=== PATIENT | female | born 1955 | race Caucasian/White ===

== ENCOUNTER 2021-11-01 14:05 | Observation (INO) | payer BC ==
[2021-11-01] MEDS ORDERED: Sodium Chloride 0.9% 10 ML Syringe FLUSH PRN (14:14)
[2021-11-01] MEDS ORDERED: HYDROmorphone 0.5 MG/0.5 ML Syringe IV ONE ×2 (14:16→15:21)
[2021-11-01] MEDS ORDERED: Ondansetron 4 MG/2 ML SDV IV ONE (14:16)
--- NOTE | 2021-11-01 14:24 | EDM.PDOC ---
ED HPI GENERAL MEDICAL PROBLEM - General Stated Complaint: STOMACH PAIN Time Seen by Provider: 11/01/21 14:23 Source of Information: Reports: Patient History Limitations: Reports: No Limitations - History of Present Illness INITIAL COMMENTS - FREE TEXT/NARRATIVE: Patient comes emergency department today with complaints of mid abdominal pain around her epigastric. This patient has a significant history in July she had a small bowel perforation where she ended up with a right upper quadrant ileostomy. She had a takedown of this ileostomy and reanastomosis on October 03 of this year. She had return to full diet on October 14. Over the past 24 hours or so she has developed mid abdominal pain cramping some nausea without vomiting. No fever no chills. She has no bloating. She has had bowel movements and she is passing gas. She has no hematuria dysuria urinary frequency. She has had no chest pain no shortness of breath or difficulty breathing. No flank pain. Middle Abdomen Pain Score (Numeric/FACES): 5 - Related Data Allergies Allergy/AdvReac Type Severity Reaction Status Date / Time hydrocodone AdvReac Vomiting Verified 11/01/21 16:07 ibuprofen AdvReac Vomiting Verified 11/01/21 16:07 Home Meds: Home Meds Albuterol Sulfate [Albuterol Sulfate HFA] 1 puff INH Q4H PRN 08/16/21 [History] Fluticasone/Vilanterol [Breo Ellipta 200-25 MCG Inhalation Kit] 1 inh IH DAILY 08/16/21 [History] Montelukast [Singulair] 10 mg PO BEDTIME 08/16/21 [History] Acetaminophen [Tylenol] 325 mg PO Q6H 11/01/21 [History] Aspirin 81 mg PO DAILY 11/01/21 [History] Multivit-Min/Iron/Folic/Lutein [Centrum Silver Women Tablet] 1 tab PO BEDTIME 11/01/21 [History] Past Medical History HEENT History: Reports: None Cardiovascular History: Reports: None Respiratory History: Reports: Asthma Gastrointestinal History: Reports: PUD, Other (See Below) (Bowel perf with ileostomy and take out.) Other Gastrointestinal History: Diverticulitis Genitourinary History: Reports: Other (See Below) Other Genitourinary History: polycystic kidney and liver MACHINIST SET UP History: Reports: None Musculoskeletal History: Reports: None Neurological History: Reports: None Psychiatric History: Reports: None Endocrine/Metabolic History: Reports: None Insulin Pump Model and Scaffold Builder: N/A Hematologic History: Reports: None Immunologic History: Reports: None Oncologic (Cancer) History: Reports: None Dermatologic History: Reports: None - Infectious Disease History Infectious Disease History: Reports: Chicken Pox - Past Surgical History Head Surgeries/Procedures: Reports: None Female Surgical History: Reports: Tubal Ligation Musculoskeletal Surgical History: Reports: Other (See Below) Other Musculoskeletal Surgeries/Procedures:: carpal tunnel. R hand trigger thumb Social & Family History - Caffeine Use Caffeine Use: Reports: None ED ROS GENERAL - Review of Systems Review Of Systems: Comprehensive ROS is negative, except as noted in HPI. ED EXAM, GI/ABD - Physical Exam Exam: See Below Exam Limited By: Altered Mental Status General Appearance: WD/WN, No Apparent Distress Ears: Normal External Exam, Normal TMs Nose: Normal Inspection, Normal Mucosa Throat/Mouth: Normal Inspection, Normal Lips, Normal Oropharynx Head: Atraumatic, Normocephalic Neck: Normal Inspection, Supple, Non-Tender Respiratory/Chest: No Respiratory Distress, Lungs Clear, No Accessory Muscle Use, Chest Non-Tender Cardiovascular: Normal Peripheral Pulses, Regular Rate, Rhythm GI/Abdominal Exam: Normal Bowel Sounds, Soft, Guarding (mid abd. ), Other (Well healed surgical scars of the abd as well. ). No: Distended, Rigid, Rebound, Tender (Female) Exam: Deferred Rectal (Female) Exam: Deferred Back Exam: Normal Inspection Extremities: Normal Inspection, Normal Range of Motion, Normal Capillary Refill Neurological: Alert, Oriented, No Motor/Sensory Deficits Psychiatric: Normal Affect, Normal Mood Skin Exam: Warm, Dry, Intact, Normal Color Course - Vital Signs Last Recorded V/S: Last Vital Signs Temp 95.9 F L 11/03/21 02:00 Pulse 74 11/03/21 02:00 Resp 16 11/03/21 02:00 BP 133/75 11/03/21 02:00 Pulse Ox 98 11/03/21 02:00 - Orders/Labs/Meds Orders: Medication Orders Acetaminophen (Acetaminophen 325 Mg Tab) 650 mg PO Q4H PRN PRN Reason: Pain/Fever Last Admin: 11/02/21 08:32 Dose: 650 mg Documented by: BONNIE Acetaminophen (Acetaminophen 325 Mg Tab) 325 mg PO Q6H [facility] Last Admin: 11/02/21 16:53 Dose: 325 mg Documented by: Admin: 11/02/21 11:37 Dose: 325 mg Documented by: BONNIE Aspirin (Aspirin 81 Mg Tab.Chew) 81 mg PO DAILY [facility] Last Admin: 11/02/21 08:01 Dose: 81 mg Documented by: BONNIE Flumazenil (Flumazenil 0.1 Mg/Ml 5 Ml Mdv) 0.2 mg IVPUSH ASDIRECTED PRN PRN Reason: Respiratory Depression Hydromorphone HCl (Hydromorphone 0.5 Mg/0.5 Ml Syringe) 0.5 mg IVPUSH Q2H PRN PRN Reason: Pain (moderate 4-6) Last Admin: 11/02/21 02:34 Dose: 0.5 mg Documented by: Admin: 11/01/21 22:28 Dose: 0.5 mg Documented by: ZOHRA Lorazepam (Lorazepam 2 Mg/Ml Sdv) 0.5 mg IVPUSH Q4H PRN PRN Reason: Anxiety Last Admin: 11/02/21 16:54 Dose: 0.5 mg Documented by: BONNIE Losartan Potassium (Losartan 25 Mg Tab) 25 mg PO DAILY [facility] Last Admin: 11/02/21 11:36 Dose: 25 mg Documented by: BONNIE Metoclopramide HCl (Metoclopramide 10 Mg/2 Ml Sdv) 5 mg IVPUSH Q4H PRN PRN Reason: Nausea Mometasone Furoate/Formoterol Fumar (Formoterol/Mometasone 200-5 Mcg 13 Gm Inhaler) 0 puff INH BID [facility] Last Admin: 11/02/21 08:01 Dose: 2 inhalation Documented by: Admin: 11/01/21 20:57 Dose: 2 inhalation Documented by: ZOHRA Ondansetron HCl (Ondansetron 4 Mg/2 Ml Sdv) 4 mg IV Q6H PRN PRN Reason: Nausea/Vomiting Last Admin: 11/02/21 08:01 Dose: 4 mg Documented by: Admin: 11/01/21 22:32 Dose: 4 mg Documented by: ZOHRA Sodium Chloride (Sodium Chloride 0.9% 10 Ml Syringe) 10 ml FLUSH ASDIRECTED PRN PRN Reason: Keep Vein Open Labs: Laboratory Tests 11/01/21 11/01/21 11/01/21 Range/Units 14:11 14:11 14:11 WBC 5.4 (4.0-10.0) x10^3/uL RBC 3.96 L (4.00-5.50) x10^6/uL Hgb 12.4 (12.0-16.0) g/dL Hct 36.0 (33.0-47.0) % MCV 90.9 (78.0-93.0) fL MCH 31.3 (26.0-32.0) pg MCHC 34.4 (32.0-36.0) g/dL RDW Coeff of Anca 13.1 (10.0-15.0) % Plt Count 258 (130-400) x10^3/uL Immature Gran % (Auto) 0.00 (0.00-0.43) % Neut % (Auto) 69.0 (50.0-80.0) % Lymph % (Auto) 20.1 L (25.0-50.0) % [place] % (Auto) 8.7 (2.0-11.0) % Eos % (Auto) 1.5 (0.0-4.0) % Baso % (Auto) 0.7 (0.2-1.2) % Neut # (Auto) 3.7 (1.8-7.7) x10^3/uL Lymph # (Auto) 1.1 (1.0-4.8) x10^3/uL [place] # (Auto) 0.5 (0.0-0.8) x10^3/uL Eos # (Auto) 0.1 (0.0-0.5) x10^3/uL Baso # (Auto) 0.0 (0.0-0.2) x10^3/uL Immature Gran # (Auto) 0.00 (0.00-0.07) x10^3/uL Sodium 140 (136-145) mmol/L Potassium 3.6 (3.5-5.1) mmol/L Chloride 104 (98-107) mmol/L Carbon Dioxide 28 (21-32) mmol/L Anion Gap 11.6 (5-15) mmol/L BUN 13 (7-18) mg/dL Creatinine 0.8 (0.55-1.02) mg/dL Est Cr Clr Drug Dosing TNP Estimated GFR (MDRD) > 60 Glucose 101 H (70-99) mg/dL Lactic Acid 1.1 (0.4-2.0) mmol/L Calcium 9.4 (8.5-10.1) mg/dL Corrected Calcium 9.4 (8.5-10.1) mg/dL Total Bilirubin 0.3 (0.2-1.0) mg/dL AST 21 (15-37) U/L ALT 42 (14-59) U/L Alkaline Phosphatase 117 H (46-116) U/L C-Reactive Protein < 0.2 (<=0.9) mg/dL Total Protein 7.2 (6.4-8.2) g/dL Albumin 4.0 (3.4-5.0) g/dL Globulin 3.2 Albumin/Globulin Ratio 1.25 Lipase 134 (73-393) U/L Procalcitonin (0.1-0.50) ng/mL Urine Color (YELLOW) Urine Appearance (CLEAR) Urine pH (5.0-8.0) Ur Specific [place] Urine Protein (NEGATIVE) mg/dL Urine Glucose (UA) (NEGATIVE) mg/dL Urine Ketones (NEGATIVE) mg/dL Urine Occult Blood (NEGATIVE) Urine Nitrite (NEGATIVE) Urine Bilirubin (NEGATIVE) Urine Urobilinogen (0.2) EU/dL Ur Leukocyte Esterase (NEGATIVE) Urine RBC (NOT SEEN) /HPF Urine WBC (NOT SEEN) /HPF Ur Squamous Epith Cells (NOT SEEN) /HPF Urine Bacteria (NOT SEEN) /HPF Urine Mucus (NOT SEEN) /LPF SARS CoV-2 RNA Rapid JARRED (NEGATIVE) 11/01/21 11/01/21 11/01/21 Range/Units 14:11 14:14 16:40 WBC (4.0-10.0) x10^3/uL RBC (4.00-5.50) x10^6/uL Hgb (12.0-16.0) g/dL Hct (33.0-47.0) % MCV (78.0-93.0) fL MCH (26.0-32.0) pg MCHC (32.0-36.0) g/dL RDW Coeff of Anca (10.0-15.0) % Plt Count (130-400) x10^3/uL Immature Gran % (Auto) (0.00-0.43) % Neut % (Auto) (50.0-80.0) % Lymph % (Auto) (25.0-50.0) % [place] % (Auto) (2.0-11.0) % Eos % (Auto) (0.0-4.0) % Baso % (Auto) (0.2-1.2) % Neut # (Auto) (1.8-7.7) x10^3/uL Lymph # (Auto) (1.0-4.8) x10^3/uL [place] # (Auto) (0.0-0.8) x10^3/uL Eos # (Auto) (0.0-0.5) x10^3/uL Baso # (Auto) (0.0-0.2) x10^3/uL Immature Gran # (Auto) (0.00-0.07) x10^3/uL Sodium (136-145) mmol/L Potassium (3.5-5.1) mmol/L Chloride (98-107) mmol/L Carbon Dioxide (21-32) mmol/L Anion Gap (5-15) mmol/L BUN (7-18) mg/dL Creatinine (0.55-1.02) mg/dL Est Cr Clr Drug Dosing Estimated GFR (MDRD) Glucose (70-99) mg/dL Lactic Acid (0.4-2.0) mmol/L Calcium (8.5-10.1) mg/dL Corrected Calcium (8.5-10.1) mg/dL Total Bilirubin (0.2-1.0) mg/dL AST (15-37) U/L ALT (14-59) U/L Alkaline Phosphatase (46-116) U/L C-Reactive Protein (<=0.9) mg/dL Total Protein (6.4-8.2) g/dL Albumin (3.4-5.0) g/dL Globulin Albumin/Globulin Ratio Lipase (73-393) U/L Procalcitonin < 0.05 L (0.1-0.50) ng/mL Urine Color Yellow (YELLOW) Urine Appearance Clear (CLEAR) Urine pH 7.0 (5.0-8.0) Ur Specific [place] 1.010 Urine Protein Negative (NEGATIVE) mg/dL Urine Glucose (UA) Negative (NEGATIVE) mg/dL Urine Ketones Negative (NEGATIVE) mg/dL Urine Occult Blood Negative (NEGATIVE) Urine Nitrite Negative (NEGATIVE) Urine Bilirubin Negative (NEGATIVE) Urine Urobilinogen 0.2 (0.2) EU/dL Ur Leukocyte Esterase Trace H (NEGATIVE) Urine RBC 0-5 (NOT SEEN) /HPF Urine WBC 0-5 (NOT SEEN) /HPF Ur Squamous Epith Cells Occasional H (NOT SEEN) /HPF Urine Bacteria Rare (NOT SEEN) /HPF Urine Mucus Not seen (NOT SEEN) /LPF SARS CoV-2 RNA Rapid JARRED Negative (NEGATIVE) Meds: Medications Generic Name Dose Route Start Last Admin Trade Name Freq PRN Reason Stop Dose Admin Acetaminophen 650 mg 11/02/21 08:14 11/02/21 08:32 Acetaminophen 325 Mg Tab PO 650 mg Q4H PRN Administration Pain/Fever Acetaminophen 325 mg 11/02/21 11:00 11/02/21 16:53 Acetaminophen 325 Mg Tab PO 325 mg Q6H HELLEN Administration Aspirin 81 mg 11/02/21 08:00 11/02/21 08:01 Aspirin 81 Mg Tab.Chew PO 81 mg DAILY HELLEN Administration Flumazenil 0.2 mg 11/02/21 10:20 Flumazenil 0.1 Mg/Ml 5 Ml Mdv IVPUSH ASDIRECTED PRN Respiratory Depression Hydromorphone HCl 0.5 mg 11/01/21 18:17 11/02/21 02:34 Hydromorphone 0.5 Mg/0.5 Ml Syringe IVPUSH 0.5 mg Q2H PRN Administration Pain (moderate 4-6) Lorazepam 0.5 mg 11/02/21 10:20 11/02/21 16:54 Lorazepam 2 Mg/Ml Sdv IVPUSH 0.5 mg Q4H PRN Administration Anxiety Losartan Potassium 25 mg 11/02/21 10:45 11/02/21 11:36 Losartan 25 Mg Tab PO 25 mg DAILY HELLEN Administration Metoclopramide HCl 5 mg 11/02/21 10:20 Metoclopramide 10 Mg/2 Ml Sdv IVPUSH Q4H PRN Nausea Mometasone Furoate/Formoterol Fumar 0 puff 11/01/21 20:30 11/02/21 08:01 Formoterol/Mometasone 200-5 Mcg 13 Gm Inhaler INH 2 inhalation BID HELLEN Administration Ondansetron HCl 4 mg 11/01/21 18:17 11/02/21 08:01 Ondansetron 4 Mg/2 Ml Sdv IV 4 mg Q6H PRN Administration Nausea/Vomiting Sodium Chloride 10 ml 11/01/21 14:14 Sodium Chloride 0.9% 10 Ml Syringe FLUSH ASDIRECTED PRN Keep Vein Open Discontinued Medications Generic Name Dose Route Start Last Admin Trade Name Freq PRN Reason Stop Dose Admin Hydromorphone HCl 0.5 mg 11/01/21 14:16 11/01/21 14:28 Hydromorphone 0.5 Mg/0.5 Ml Syringe IV 11/01/21 14:17 0.5 mg ONETIME ONE Administration Hydromorphone HCl 0.5 mg 11/01/21 15:21 11/01/21 15:25 Hydromorphone 0.5 Mg/0.5 Ml Syringe IV 11/01/21 15:22 0.5 mg ONETIME ONE Administration Lactated Ringer's 1,000 mls @ 150 mls/hr 11/01/21 14:15 11/01/21 21:10 Ringers, Lactated IV Infused ASDIRECTED HELLEN Infusion Lactated Ringer's 1,000 mls @ 125 mls/hr 11/01/21 18:30 Ringers, Lactated IV ASDIRECTED HELLEN Magnesium Sulfate 2 gm/ Premix 50 mls @ 25 mls/hr 11/02/21 10:19 11/02/21 11:13 IV 11/02/21 12:18 25 mls/hr ONETIME ONE Administration Ibuprofen 600 mg 11/02/21 18:02 11/02/21 18:54 Ibuprofen 200 Mg Tab PO 11/02/21 18:03 600 mg ONETIME ONE Administration Iopamidol 100 ml 11/01/21 15:19 11/01/21 15:20 Iopamidol 612 Mg/Ml 100 Ml Bottle IVPUSH 11/01/21 15:20 74 ml ONETIME ONE Administration Ondansetron HCl 4 mg 11/01/21 14:16 11/01/21 14:29 Ondansetron 4 Mg/2 Ml Sdv IV 11/01/21 14:17 4 mg ONETIME ONE Administration - Re-Assessments/Exams Free Text/Narrative Re-Assessment/Exam: IV was established labs are drawn. LR 500 mill bolus 125 an hour. Zofran for nausea Dilaudid for pain. Laboratory evaluation Rather unremarkable with a normal lactic acid normal white blood cell count hemoglobin. Trace of leuks in her urine. Covid is negative. CT abdomen pelvis per radiology shows recent surgical changes with a mild ileus. Patient continues to be quite uncomfortable and received multiple doses of Dilaudid in the emergency department for comfort. With the presentation of this ileus and recent surgeries I did call and speak with the surgeon smoke control supervisor at [facility] where she had her surgery in the past. HPI ER COURSE findings and concerns and he was comfortable with my plan of admission clear liquid pain meds and hydration. Discussed the findings and plan of care with the patient. She initially was somewhat hesitant to be placed in the hospital primarily because she has spent so much time in the hospital in the past couple of months. Although I think it is paramount at this time for appropriate management of an ileus. She was comfortable with this plan and her questions were answered. Departure - Departure Time of Disposition: 16:00 Disposition: Refer to Observation Clinical Impression: Ileus - Discharge Information - Problem List Review Problem List Initiated/Reviewed/Updated: Yes - Assessment/Plan Admission H&P: Please use this note as an admission H&P Assessment:: Assessment/plan. 1. Mild ileus. Status post reanastomosis 10/03/21. Clear liquid diet LR 125mls/hr Dilaudid for pain Zofran Benadryl for nausea Chronic Diagnosis GERD continue home therapy Asthma continue home therapy. Polycystic kidney monitor Sepsis: No signs of sepsis at this time. VTE: Low risk TEDs Code Status: Full Plan will be to admit the patient under observation as above. I do not anticipate any more than 48 hours of admission for this patient. If she does not clinically improve or she worsens by any means may have to change her to inpatient status and complete further evaluation although I think this is unlikely. The patient will be seen by her primary care provider Dr. French Maza in the morning. The patient is comfortable with this plan and her questions answered.
[2021-11-01] MEDS: Lactated Ringers 1,000 ML IV SCH (14:29)
[2021-11-01 14:36] LABS: CHLORIDE,CL 104 mmol/L (98-107); SODIUM,NA 140 mmol/L (136-145)
[2021-11-01 14:37] LABS: ANION GAP 11.6 mmol/L (5-15)
[2021-11-01] MEDS ORDERED: Iopamidol 612 MG/ML 100 ML Bottle IVPUSH ONE (15:19)
--- NOTE | 2021-11-01 15:33 | CT ---
[id number] CT/CT Abdomen Pelvis W IV EXAM: CT Abdomen Pelvis W IV CLINICAL DATA: ABDOMINAL PAIN RECENT SURGERY COMPARISON: No previous similar exam is available. FINDINGS: Surgical changes are seen There is no free fluid or free air There is no bowel obstruction. There is evidence of polycystic disease involving the kidneys and liver There appears to be a mild ileus. The gallbladder is not distended The mesenteric vessels are opacified normally There may be portal venous hypertension The pelvis shows no mass or adenopathy IMPRESSION: RECENT SURGICAL CHANGES MILD ILEUS Mook Lorenzo MD 11/01/21 [id number] Thank you for allowing us to participate in the care of your patient.
[2021-11-01] MEDS ORDERED: Lactated Ringers 1,000 ML IV SCH (18:30)
[2021-11-01] MEDS: Formoterol/Mometasone 200-5 MCG 13 GM Inhaler INH SCH (20:57)
[2021-11-01] MEDS: HYDROmorphone 0.5 MG/0.5 ML Syringe IVPUSH PRN (22:28)
[2021-11-01] MEDS: Ondansetron 4 MG/2 ML SDV IV PRN (22:32)
[2021-11-02] MEDS: HYDROmorphone 0.5 MG/0.5 ML Syringe IVPUSH PRN (02:34)
[2021-11-02] MEDS: Lactated Ringers 1,000 ML IV SCH (02:34)
[2021-11-02] MEDS: Formoterol/Mometasone 200-5 MCG 13 GM Inhaler INH SCH (08:01)
[2021-11-02] MEDS: Ondansetron 4 MG/2 ML SDV IV PRN (08:01)
[2021-11-02] MEDS: Aspirin 81 MG Tab.Chew PO SCH (08:01)
[2021-11-02] MEDS: Acetaminophen 325 MG Tab PO PRN (08:32)
[2021-11-02 08:40] LABS: CHLORIDE,CL 103 mmol/L (98-107); SODIUM,NA 141 mmol/L (136-145)
[2021-11-02 08:46] LABS: ANION GAP 12.7 mmol/L (5-15)
[2021-11-02] MEDS ORDERED: Magnesium Sulfate/Water 2 GM in Premix Bag 1 BAG IV ONE (10:19)
[2021-11-02] MEDS ORDERED: Flumazenil 0.1 MG/ML 5 ML MDV IVPUSH PRN (10:20)
[2021-11-02] MEDS ORDERED: LORazepam 2 MG/ML SDV IVPUSH PRN (10:20)
[2021-11-02] MEDS ORDERED: Metoclopramide 10 MG/2 ML SDV IVPUSH PRN (10:20)
--- NOTE | 2021-11-02 11:33 | PN ---
Progress Note for RICKY ANDINO Date: 11/02/2021 Room #: VM.205 SUBJECTIVE: This is a 65-year-old admitted to observation yesterday after coming in with significant abdominal pain. The patient had diverticulitis and surgery earlier this year and then had a colostomy reversal. She did say she has been anxious, having trouble sleeping at night, was in the ER on the and her blood pressure was 169/77. She got a dose of clonidine and that did help. She did get a dose of IV Dilaudid and her abdominal pain is much better, just tender to the touch, but it made her nauseous. This morning, she was having more of a headache, more in the neck. She did get some Tylenol, it helped a little. She is requesting something for anxiety. She had gotten some IV Zofran also this morning. She has been on IV fluids. She did well with liquids, but did sort of get not feeling so well after having the broth. The patient does have a history of hypertension and polycystic kidney disease. She is normally on losartan in the past, 25 mg daily. Of note, her ileostomy takedown was on 10/03/2021 and she went home on 10/05/2021. She is passing gas, but has not had a bowel movement since admission. She has been up. She is walking around in the halls. Her initial diverticulitis admission was 08/19/2021, discharged on the . OBJECTIVE: Vital Signs: Today, blood pressure here is excellent this morning 133/67. She did have a peak of 157/89 during the night. Her temperature is 97.1, pulse 84, respiratory rate 19, and O2 of 95% on room air. General: She is in no acute distress. Heart: Regular rate and rhythm. S1, S2 without murmur. Lungs: Her lung sounds are clear to auscultation bilaterally without crackles or wheezes. Abdomen: Positive bowel sounds. It is soft and nondistended. There is mild tenderness over her well-healed incisions and in the mid abdomen, but no rebound or guarding. Mental Status: She is alert and orientated x3. She is not overly shaky or anxious, but admits to feeling anxious at times affecting her sleep. Extremities: She does have some tenderness on her upper trapezius muscles. Her neck range of motion is good. LABORATORY DATA: White count normal 5.3, hemoglobin 12.1, platelets 226. Sodium 141, potassium 3.7, chloride 103, bicarb 29, BUN 8, creatinine 0.7, glucose 107, calcium 9.1. UA, just trace leukocytes, nothing on culture. ASSESSMENT: 1. Ileus. She had a CT yesterday confirming this. Her symptoms are already improving. She has not vomited. She is not requiring an NG tube. 2. Headache, probably some muscle tension. We will give her some IV magnesium and have p.r.n. Ativan available. She also has Tylenol available. 3. Essential hypertension. I am going to restart her losartan. She already has a followup in the clinic to further discuss this. 4. Anxiety. Discussed using medications like Ativan in the short term and she is agreeable to try that. 5. Polycystic kidney disease. She has had CTs in the past of the head to evaluate for aneurysm. 6. Recent ileostomy takedown. The patient seems to be doing well. We will continue her on clear liquids and advance diet as tolerated. We will try to limit the Dilaudid for pain. If absolutely necessary could use a dose of IV toradol but patient prefers to stick with tylenol PLAN: The patient will continue on acute cares. We will continue with monitoring of her electrolytes for the ileus. We will stop the IV fluids. I will give her some IV magnesium. Restart her losartan. Repeat lab work tomorrow and also add IV p.r.n. Reglan if needed for nausea. Anticipate the patient will be stable for discharge to home tomorrow. MKA: 11/02/2021 10:40:56 MODL: 11/02/2021 11:26:39 /[id number] RANGEL
[2021-11-02] MEDS: Losartan 25 MG Tab PO SCH (11:36)
[2021-11-02] MEDS: Acetaminophen 325 MG Tab PO SCH ×2 (11:37→16:53)
[2021-11-02] MEDS ORDERED: Ibuprofen 200 MG Tab PO ONE (18:02)
[2021-11-03] MEDS: Acetaminophen 325 MG Tab PO SCH (07:47)
[2021-11-03] MEDS: Formoterol/Mometasone 200-5 MCG 13 GM Inhaler INH SCH ×2 (07:48→09:08)
[2021-11-03 08:37] LABS: CHLORIDE,CL 106 mmol/L (98-107); SODIUM,NA 143 mmol/L (136-145)
[2021-11-03] MEDS: Losartan 25 MG Tab PO SCH (09:05)
[2021-11-03] MEDS: Acetaminophen 325 MG Tab PO PRN (09:06)
[2021-11-03] MEDS: Aspirin 81 MG Tab.Chew PO SCH (09:06)
[2021-11-03] MEDS ORDERED: Take Home: LORazepam 0.5 MG Tab, 2 Tab Pack PO ONE (10:38)
[2021-11-03] MEDS ORDERED: LORazepam 0.5 MG Tab PO PRN (10:46)
--- NOTE | 2021-11-04 05:48 | DISCH ---
PRIMARY DISCHARGE DIAGNOSIS: Ileus. SECONDARY DISCHARGE DIAGNOSES: 1. Headache due to some muscle tension, improved. 2. Adjustment disorder with some anxiety. She did get a dose of Ativan that helps. 3. Essential hypertension, controlled on losartan. 4. Polycystic kidney disease. 5. Diverticulitis earlier this year with emergent colostomy and then recent ileostomy takedown earlier this month on 10/03. REASON FOR ADMISSION: On the date of admission, this 65-year-old female who had previous abdominal surgeries this fall for diverticulitis, had been recovering at home from her ileostomy reversal when she ate some oatmeal in the morning. She had actually had a bowel movement, then she tried to have some soup, but she had increasing abdominal pain to the point where she presented to the ER. She did not have any vomiting but did have nausea. No fever, no chills. She was given IV fluids, IV Ativan and IV Dilaudid and her symptoms did improve. She actually felt that her nausea on her 1st full hospital morning was due to the IV Dilaudid and after that, she took Tylenol for pain, but did get one dose of ibuprofen due to headache. She does have a polycystic kidney disease, but her kidney function was normal throughout her stay. Her electrolytes were normal. She did get some IV magnesium to help with her ileus and headache. Her white count was normal. She was not having any shortness of breath or cough. She does have some underlying asthma. Her blood pressures were under good control, she did have just increased slightly to 146/96 this morning. OBJECTIVE: Vital signs: Her temperature on discharge was 96.8, pulse 79, previous blood pressure was 116/65, respiratory rate 16, and O2 of 98 on room air. General: She is in no acute distress. Heart: Regular rate and rhythm. S1, S2 without murmur. Pulmonary: Lung sounds are clear to auscultation bilaterally without crackles or wheezes. Abdomen: Has positive bowel sounds. It is soft, nondistended. There is some mild tenderness around her incisions which are well healed. No rebound. No guarding. Mental Status: She is alert. She is orientated x3. DISCHARGE PLANS AND INSTRUCTIONS: She will follow up with Dr. Maza in the clinic next week as already scheduled. She will continue her losartan for blood pressure. She was given the okay to use Ativan 1/2 tablet of 0.5 daily as needed for anxiety and two pills sent from the hospital. She will be on a diet as tolerated. She was having mostly just broth and Jell-O here, did tolerate some coffee this morning. She was encouraged to have things like liquids and juice and she is going to try some milk and apple sauce at lunch and hopefully go home after that. She will also be started on stool softener Senna Plus to help promote good soft, looser bowel movements and she is to avoid any straining and she will resume her Metamucil at home. MKA: 11/03/2021 10:58:51 MODL: 11/03/2021 12:07:09 /[id number] RANGEL
== END 2021-11-03 13:20 | disposition home or self-care (01) ==
LOC: VM.ED 14:05 → MERGE 16:42 → VM.MS 16:42
PROVIDERS: ADMIT Nurse Practitioner Family; ATTEND Nurse Practitioner Family
DX: K56.7 Ileus, unspecified (principal); J45.909 Unspecified asthma, uncomplicated; K21.9 Gastro-esophageal reflux disease without esophagitis; Q61.3 Polycystic kidney, unspecified; R51.9 Headache, unspecified; I10 Essential (primary) hypertension; Z20.822 Contact with and (suspected) exposure to COVID-19; Z88.5 Allergy status to narcotic agent; Z88.8 Allergy status to other drugs, medicaments and biological substances; Z79.82 Long term (current) use of aspirin; Z79.899 Other long term (current) drug therapy; Z98.890 Other specified postprocedural states
CPT/HCPCS: 36415; 74177; 80048; 80053; 80069; 81001; 81003; 83605; 83690; 83735; 84145; 85025; 86140; 87086; 94760; 96374; 96375; 96376; 99285-25; A9270-GY; G0378; J1170; J2060; J2405; J3475; J7120; Q9967; U0002

== ENCOUNTER 2022-03-14 08:09 | Day surgery (SDC) | payer BC ==
[~2022-03-14 08:09] MED LIST: Lactated Ringers 1,000 ML IV SCH
[2022-03-14] MEDS ORDERED: Citric Acid/Sodium Citrate Solution 30 ML Cup PO ONE (09:07)
[2022-03-14] MEDS ORDERED: fentaNYL 100 MCG/2 ML SDV ONE (09:40)
[2022-03-14] MEDS ORDERED: Propofol 200 MG/20 ML SDV ONE (09:40)
== END 2022-03-14 12:00 | disposition home or self-care (01) ==
LOC: VM.SDS 08:09
PROVIDERS: ATTEND Family Medicine
DX: Z12.11 Encounter for screening for malignant neoplasm of colon (principal); D12.6 Benign neoplasm of colon, unspecified; K57.30 Diverticulosis of large intestine without perforation or abscess without bleeding; K64.9 Unspecified hemorrhoids; Z90.49 Acquired absence of other specified parts of digestive tract; I10 Essential (primary) hypertension; F41.9 Anxiety disorder, unspecified; J45.40 Moderate persistent asthma, uncomplicated; Z79.899 Other long term (current) drug therapy; Z88.8 Allergy status to other drugs, medicaments and biological substances; Z98.890 Other specified postprocedural states
CPT/HCPCS: 00811; A9270-GY; J2704; J3010; J7120